=== PATIENT | female | born 1985 | race African-American/Black ===

== ENCOUNTER 2020-11-21 10:57 | Outpatient (CLI) | payer OTHER, SELFPAY ==
[2020-11-21 11:28] LABS: Basophils Percent Auto 0.3 % (0.2-1.2); Eosinophils Absolute Auto 0.1 K/mm3 (0-0.3); Eosinophils Percent Auto 0.7 % (0-4.4); Hematocrit 38.5 % (37.0-47.0); Hemoglobin 12.9 g/dL (12.0-15.0); Immature Granulocyte Absolute 0.03 K/mm3 (0.00-0.031); Immature Granulocyte Percent A 0.4 % (0-0.5); Lymphocytes Absolute Auto 3.65 K/mm3 (0.9-3.2); Lymphocytes Percent Auto 47.9 % (18.3-44.2); Mean Corpuscular HGB Conc 33.5 g/dl (32-36); Mean Corpuscular Hemoglobin 27.8 pg (26-34); Mean Platelet Volume 9.1 fl (7.4-10.4); Monocytes Absolute Auto 0.5 K/mm3 (0.1-0.6); Monocytes Percent Auto 6.3 % (2.6-8.5); Neutrophils Absolute Auto 3.4 K/mm3 (1.3-6.7); Neutrophils Percent Auto 44.4 % (45.5-73.1); Platelet Count Result 262 k/mm3 (150-375); Red Blood Count 4.64 M/mm3 (4.2-5.4); Red Cell Distribution Width 12.2 % (11.5-14.5); White Blood Count 7.6 K/mm3 (4.5-10.0)
[2020-11-21 11:43] LABS: Alanine Aminotransferase 23 U/L (4-35); Albumin Level 4.1 g/dL (3.5-5.1); Alkaline Phosphatase 56 U/L (38-126); Anion Gap 5 mmol/L (8-16); Aspartate Amino Transferase 31 U/L (14-36); Bilirubin,Total 0.4 mg/dL (0.2-1.3); Blood Urea Nitrogen 14 mg/dL (7-17); Carbon Dioxide 29 mmol/L (22-30); Chloride 104 mmol/L (98-107); Cholesterol 161 mg/dL (0-200); Estimated Glomerular Filt Rate > 60; Glucose 141 mg/dL (65-110); HDL Direct 64 mg/dL; Magnesium 1.8 mg/dL (1.6-2.3); Potassium 4.3 mmol/L (3.4-5.0); Sodium 138 mmol/L (137-145); Triglycerides 68 mg/dL (<150)
[2020-11-21 11:53] LABS: LDL Cholesterol Direct 65 mg/dL
[2020-11-21 12:28] LABS: Vitamin D 25 Hydroxy 36.9 ng/mL
[2020-11-21 12:34] LABS: Hemoglobin A1C 6.2 % (<5.7)
[2020-11-21 12:42] LABS: Vitamin B12 > 1000.0 pg/mL (239-931)
== END 2020-11-21 10:58 | disposition home or self-care (01) ==
LOC: ANHLAB 11:01
PROVIDERS: PCP Nurse Practitioner Family
DX: K91.2 Postsurgical malabsorption, not elsewhere classified (principal); Z98.84 Bariatric surgery status
CPT/HCPCS: 36415; 80053; 80061; 82306; 82607; 82746; 83036; 83735; 84425; 85025

== ENCOUNTER 2021-05-18 10:46 | Emergency (ER) | payer OTHER, SELFPAY ==
--- NOTE | ~2021-05-18 | US_ITS ---
EXAMINATION: US venous doppler [facility] DATE: 05/18/2021 12:37 INDICATION: Left lower limb pain and swelling. TECHNIQUE: Grayscale ultrasound images without and with compression and Doppler ultrasound images of the left lower extremity veins were obtained. COMPARISON: None. FINDINGS: The visualized portions of left common femoral vein, profunda (deep) femoral vein, femoral vein, popl iteal vein, peroneal veins, posterior tibial veins, and greater saphenous vein outflow are patent. IMPRESSION: 1. No deep venous thrombosis. Reviewed, dictated and finalized at location A.
--- NOTE | ~2021-05-18 | CT_ITS ---
EXAMINATION: CT lumbar spine wo [facility] EXAM DATE: 05/18/2021 12:39 INDICATION: Midline tenderness, spasms, back pain. TECHNIQUE: Spiral CT lumbar spine was performed without contrast. Axial, coronal and sagittal images of the lumbar spine were reviewed. The dose-length product (DLP) for this examination was 1141.64 mGy -cm. The exposure was tailored according to patient size (auto mA exposure control), and iterative r econstruction (ASIR) was used as additional dose reduction technique. There is no prior study for co mparison. FINDINGS: Sacroiliac joints unremarkable. There is no evidence of acute lumbar fracture. There is no disc spa ce widening or traumatic vertebral body subluxation suspected. Paraspinal soft tissue is unremarkabl e. There is mild to moderate disc disease at L5-S1. The vertebral body and disc heights are otherwis e well maintained. 2 mm retrolisthesis L5 on S1. No spondylolysis. There is mild lower lumbar facet a rthropathy. IMPRESSION: 1. Mild to moderate L5-S1 disc disease. 2. Mild lower lumbar facet arthropathy. Reviewed, dictated and finalized at location A.
[2021-05-18 10:47] VITALS: BP 158/100; PULSE 94; RESP 20; TEMP 36.9; O2SAT 100
--- NOTE | 2021-05-18 11:46 | ED.BACK ---
HPI - Back Pain/Injury General Chief Complaint: Back Pain/Injury Stated Complaint: back pain , calf pain Time Seen by Provider: 05/18/21 10:57 Source: patient Mode of arrival: ambulatory Limitations: no limitations History of Present Illness HPI Narrative: Patient is a 35-year-old female who presents the ED with report of lower back pain and left lower extremity pain. Patient reports the pain has been ongoing for the past 3 weeks. No injury, fall, recent heavy lifting, or strenuous activity. She states the pain is worse in her left and right lower back and she also reports having pain in her left calf. She states the pain in her left calf seems to radiate up her mid left thigh. She does not think this pain radiates from her lower back however. Patient is able to ambulate but has pain with this. She has been taking Tylenol at home for the pain and using heat without much relief. No numbness tingling, saddle anesthesia, weakness in legs, incontinence of bowel or bladder, urinary retention, chest pain, shortness of breath, fever, chills, N/V, abdominal pain. Related Data Allergies Allergy/AdvReac Type Severity Reaction Status Date / Time No Known Allergies Allergy Unverified 08/06/18 16:51 Review of Systems Review of Systems: CONSTITUTIONAL: Denies fever, chills. CARDIOVASCULAR: Denies chest pain. RESPIRATORY: Denies dyspnea. GASTROINTESTINAL: Denies abdominal pain, nausea, vomiting, diarrhea, incontinence. GENITOURINARY: Denies dysuria, incontinence, or hematuria. MUSCULOSKELETAL: Reports bilateral lower back pain, L calf pain up to L thigh. NEUROLOGIC: Denies headache, numbness/tingling, or weakness. All systems reviewed & are unremarkable except as noted in HPI and below PMFSH Past Medical History Medical History (Updated 05/18/21 @ 14:08 by Praveena Pepper PA-C) Hypertension Surgical History Surgical History (Updated 05/18/21 @ 11:47 by Praveena Pepper PA-C) H/O gastric sleeve Social History Social History (Updated 05/18/21 @ 11:47 by Praveena Pepper PA-C) Smoking status: Never smoker Exam Narrative: GENERAL: Well appearing, obese, non-toxic, in no acute distress. HEAD: Normocephalic, atraumatic. EYES: PERRL/EOMI, conjunctivae clear bilaterally. NECK: Supple. No adenopathy, no masses. No midline spinal tenderness. RESPIRATORY: Airway patent, respirations nonlabored. Clear to auscultation bilaterally, no rales, rhonchi, wheezing. CARDIOVASCULAR: Regular rate and rhythm without murmurs, rubs, or gallops. Peripheral pulses 2+ and equal bilaterally. ABDOMINAL: Soft, nontender, nondistended, no hepatosplenomegaly. Normoactive BS. MUSCULOSKELETAL: Moves all extremities. Strength/ROM intact without gross deformities. Pain with extension of L knee. Tender to palpation of L popliteal fossa. Mild swelling to L calf compared to R. No pitting edema. Tenderness to palpation of R and L lumbar paraspinal muscles. No midline spinal tenderness. SKIN: Warm, dry, normal color. No rashes. NEURO: A&O X3. Speech clear. Cranial nerves II-XII intact. Steady gait. No ataxic movements. PSYCHIATRIC: Appropriate mood and affect. Normal interaction. Course Vital Signs Vital signs: Vital Signs Temperature 98.4 F 05/18/21 10:47 Pulse Rate 94 05/18/21 10:47 Respiratory Rate 20 05/18/21 10:47 Blood Pressure 158/100 H 05/18/21 10:47 Pulse Oximetry 100 05/18/21 10:47 Temperature 98.4 F 05/18/21 10:47 Pulse Rate 94 05/18/21 10:47 Respiratory Rate 20 05/18/21 10:47 Blood Pressure 158/100 H 05/18/21 10:47 Pulse Oximetry 100 05/18/21 10:47 MDM - Back Pain/Injury MDM Narrative Medical decision making narrative: Patient presenting to ED with several week history of intermittent low back pain and left calf pain. Patient's pain is positional and localized to paraspinal muscles without signs of cord compression or cauda equina. Normal neurologic exams. No fever noted and no significant risk factors for osteomy
[2021-05-18] MEDS: KETOROLAC (*BKC) 60 MG/2 ML VIAL IM (11:53)
[2021-05-18 14:26] VITALS: BP 134/84; PULSE 80; RESP 18; TEMP 36.3; O2SAT 98
--- NOTE | 2021-05-19 16:42 | PC.NURSE ---
pt. called stating pharmacy ([facility]) told her Praveena was not a covered provider for her prescriptions. Pt. has helioidian. Pt. instructed to have pharmacy call us directly.
== END 2021-05-18 14:28 | disposition home or self-care (01) ==
PROVIDERS: Emergency Provider Emergency Medicine; PCP Family Medicine
DX: S39.012A Strain of muscle, fascia and tendon of lower back, initial encounter (principal); S86.912A Strain of unspecified muscle(s) and tendon(s) at lower leg level, left leg, initial encounter; I10 Essential (primary) hypertension; Z98.84 Bariatric surgery status; M51.9 Unspecified thoracic, thoracolumbar and lumbosacral intervertebral disc disorder; X58.XXXA Exposure to other specified factors, initial encounter
CPT/HCPCS: 72131; 81025; 93971; 96372; 99284; J1885

== ENCOUNTER 2021-06-27 16:31 | Outpatient (CLI) | payer OTHER, SELFPAY ==
[2021-06-27 17:11] LABS: Alanine Aminotransferase 18 U/L (6-35); Albumin Level 3.8 g/dL (3.5-5.1); Alkaline Phosphatase 77 U/L (38-126); Anion Gap 5 mmol/L (8-16); Aspartate Amino Transferase 22 U/L (14-36); Bilirubin,Total 0.2 mg/dL (0.2-1.3); Blood Urea Nitrogen 15 mg/dL (7-17); Calcium 8.4 mg/dL (8.4-10.2); Carbon Dioxide 26 mmol/L (22-30); Chloride 103 mmol/L (98-107); Cholesterol 170 mg/dL (0-200); Estimated Glomerular Filt Rate > 60; Glucose 251 mg/dL (65-110); HDL Direct 61 mg/dL; Potassium 4.2 mmol/L (3.4-5.0); Sodium 134 mmol/L (137-145); Triglycerides 96 mg/dL (<150)
[2021-06-27 17:15] LABS: Basophils Percent Auto 0.2 % (0.2-1.2); Eosinophils Absolute Auto 0.1 K/mm3 (0-0.3); Hematocrit 37.4 % (37.0-47.0); Hemoglobin 11.9 g/dL (12.0-15.0); Immature Granulocyte Absolute 0.03 K/mm3 (0.00-0.031); Immature Granulocyte Percent A 0.3 % (0-0.5); Lymphocytes Absolute Auto 2.74 K/mm3 (0.9-3.2); Lymphocytes Percent Auto 31.4 % (18.3-44.2); Mean Corpuscular HGB Conc 31.8 g/dl (32-36); Mean Corpuscular Hemoglobin 27.7 pg (26-34); Mean Corpuscular Volume 87.2 fl (80-100); Mean Platelet Volume 9.3 fl (7.4-10.4); Monocytes Absolute Auto 0.7 K/mm3 (0.1-0.6); Monocytes Percent Auto 8.1 % (2.6-8.5); Neutrophils Absolute Auto 5.1 K/mm3 (1.3-6.7); Platelet Count Result 252 k/mm3 (150-375); Red Blood Count 4.29 M/mm3 (4.2-5.4); Red Cell Distribution Width 12.8 % (11.5-14.5); White Blood Count 8.7 K/mm3 (4.5-10.0)
[2021-06-27 17:17] LABS: Hemoglobin A1C 7.2 % (<5.7)
[2021-06-27 17:22] LABS: LDL Cholesterol Direct 65 mg/dL
[2021-06-27 17:36] LABS: Vitamin D 25 Hydroxy 34.5 ng/mL
== END 2021-06-27 16:32 | disposition home or self-care (01) ==
LOC: ANHLAB 16:34
PROVIDERS: PCP Family Medicine; Visit Provider Family Medicine
DX: E11.65 Type 2 diabetes mellitus with hyperglycemia (principal); E55.9 Vitamin D deficiency, unspecified; I10 Essential (primary) hypertension
CPT/HCPCS: 36415; 80053; 80061; 82306; 83036; 84443; 85025

== ENCOUNTER 2022-01-14 02:35 | Inpatient (IN) | payer OTHER, SELFPAY ==
[2022-01-14] VITALS (53 sets, daily range): BP systolic 137–241; BP diastolic 70–211; PULSE 83–104; RESP 13–27; TEMP 35.9–36.4; O2SAT 96–100; BMI 46.7
--- NOTE | 2022-01-14 | ECHO_ITS ---
Patient Info Name: Kathryn Flores Age: 36 years : 1985 Gender: Female Ht: 64 in Wt: 270 lbs BSA: 2.42 m2 HR: 97 bpm BP: 207 / 85 mmHg Technical Quality: Good Exam Date: 01/14/2022 3:07 PM Exam Location: [facility] Pulmonary Exam Room: 260 Patient Status: Inpatient Admit Date: 01/14/2022 Staff Ordering Physician: Ella Jiang MD Natural Resource Economist: Benita Akhtar RCS Attending Provider: Shekhar Zavala MD Exam Type: CA echo doppler color flow Study Info Indications - cva headach rt arm numbness htn Complete two-dimensional, color flow and Doppler transthoracic echocardiogram is performed. Summary 1. Complete two-dimensional, color flow and Doppler transthoracic echocardiogram is performed. 2. Left ventricular chamber dimension is normal. 3. Left ventricular systolic function is normal, estimated at 65-70%. 4. There is moderately increased left ventricular wall thickness. 5. The left ventricular diastolic function is grade I diastolic dysfunction. 6. E/e' 8 is minimally elevated. 7. There is trace tricuspid valve regurgitation. 8. Moderate pulmonary hypertension, estimated pulmonary arterial systolic pressure is 51 mmHg. 9. There is trivial pericardial effusion. Left Ventricle E/e' 8 is minimally elevated. Left ventricular chamber dimension is normal. Left ventricular systolic function is normal, estimated at 65-70%. There is moderately increased left ventricular wall thickness. The left ventricular diastolic function is grade I diastolic dysfunction. Right Ventricle Right ventricular chamber dimension is normal. Right ventricular systolic function is normal. Left Atria Left atrial chamber dimension is normal. Right Atria Right atrial chamber dimension is normal. Aortic Valve The aortic valve is trileaflet. There is no aortic valve stenosis. There is no aortic valve regurgitation. Pulmonic Valve There is no pulmonic regurgitation. Mitral Valve There is no mitral valve stenosis. There is no mitral valve regurgitation. Tricuspid Valve There is trace tricuspid valve regurgitation. Moderate pulmonary hypertension, estimated pulmonary arterial systolic pressure is 51 mmHg. Pericardium/Pleural There is trivial pericardial effusion. Inferior Vena Cava Normal inferior vena cava with >50% collapse upon inspiration consistent with normal right atrial pressure, 5 mmHg. Aorta The aortic root size at the sinus of Valsalva is normal. Left Ventricular Outflow Tract Name Value Normal LVOT 2D LVOT Diameter 2.0 cm LVOT Doppler LVOT Peak Gradient 4 mmHg LVOT Mean Gradient 3 mmHg LVOT VTI 19 cm LVOT VTI/AV VTI Ratio 0.8 LVOT Stroke Volume 61 ml LVOT CO 15.6 l/min LVOT CI 6.5 l/min/m2 Pulmonic Valve Name Value Normal
--- NOTE | ~2022-01-14 | MR_ITS ---
EXAMINATION: MR brain/brain stem wo/w con DATE: 01/14/2022 12:29 INDICATION: Stroke TECHNIQUE: Magnetic resonance imaging (MRI) of the brain and brainstem was performed without and with 20 mL Multihance intravenous contrast. Sequences included sagittal and axial T1-weighted SE, axial d iffusion-weighted FS SE, axial 3D SWAN, axial T2-weighted FLAIR, and axial T2-weighted FSE. Postcontr ast axial and coronal T1-weighted SE was obtained. Apparent diffusion coefficient (ADC) maps were cre ated. COMPARISON: None. FINDINGS: Small to moderate-sized region of restricted diffusion and associated cytotoxic edema in the left fro ntal lobe with multiple additional small foci of restricted diffusion with associated T2 hyperintense edema also consistent with smaller acute infarcts in the left frontal, left parietal and left occipi ira lobes. There is associated increased T2 signal No intracranial hemorrhage or abnormal intracrania l mass lesion. There are no intraparenchymal signal abnormalities seen on the other pulse sequences. The ventricles are symmetric and normal in size. There are no abnormal extra-axial fluid collections. Flow voids are seen in the cerebral arteries on the T2-weighted sequences consistent with their expe cted patency. Mild mucoperiosteal thickening the bilateral ethmoid sinuses. Visualized orbits and sof t tissues are unremarkable. Minimal enhancement consistent with luxury perfusion associated with the largest left frontal lobe infarct. There are no other areas of abnormal enhancement on the post contr ast images. IMPRESSION: 1. 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 The distribut ion involving unilateral both anterior and posterior circulation suggests either shower of emboli inc luding through a patent left posterior commuting artery versus unilateral watershed infarcts resultin g hypotension in the setting of left-sided flow limiting stenoses. Reviewed, dictated and finalized at location A. N PLANNER IMPRESSION: 1. Multiple acute infarcts in the left frontal, left parietal and left occipita l lobes. The distribution involving unilateral both anterior and posterior circ ulation suggests either shower of emboli including through a patent left track superintendent ior commuting artery versus unilateral watershed infarcts resulting hypotension in the setting of left-sided flow limiting stenoses.
--- NOTE | ~2022-01-14 | XR_ITS ---
EXAMINATION: XR chest 1V portable 01/14/2022 03:18 INDICATION: Weakness. Dyspnea. PROCEDURE: AP portable chest COMPARISON: 05/28/2017 FINDINGS: The lungs are clear. The cardiomediastinal silhouette is within normal limits. There are no pleural effusions. There is no pneumothorax suspected. IMPRESSION: 1: NO ACUTE CARDIOPULMONARY DISEASE. Reviewed, dictated and finalized at location A. BLACK
--- NOTE | ~2022-01-14 | US_ITS ---
EXAMINATION: US carotid duplex BI DATE: 01/14/2022 18:35 INDICATION: Stroke TECHNIQUE: Grayscale, color Doppler, and pulsed Doppler images of the cervical carotid arteries were obtained. The degree of vessel stenosis is placed in one of the following categories: normal, <50%, 5 0-69%, >=70% but less than near-occlusion, near-occlusion, or total occlusion. Note that percent sten osis relative to normal distal artery lumen diameter is indirectly measured from velocity measurement s as described by Adalid, et al. Radiology 2003; 229:340-346. COMPARISON: Carotid CT angiogram dated 01/14/2022 FINDINGS: RIGHT: The right common carotid artery (CCA) peak systolic velocity (PSV) is 107 cm/s. The right internal ca rotid artery (ICA) PSV is 192 cm/s. The right ICA end-diastolic velocity (EDV) is 69 cm/s. The right ICA/CCA PSV ratio is 1.8. There is minimal if any atherosclerotic plaque evident in the right common carotid artery, carotid bulb or more distal small caliber internal carotid artery as on the current u ltrasound or the earlier carotid CT angiogram. The external carotid artery (ECA) PSV is 157 cm/s. The re is antegrade flow in the right vertebral artery. LEFT: The left CCA PSV is 111 cm/s. The left ICA PSV is 104 cm/s. The left ICA EDV is 35 cm/s. The left ICA /CCA PSV ratio is 0.9. There is minimal if any atherosclerotic plaque evident in the left common gant tid artery, carotid bulb or more distal small caliber internal carotid artery on the current ultrasou nd or the earlier carotid CT angiogram. The ECA PSV is cm/s. There is antegrade flow in the left vert ebral artery. IMPRESSION: 1. Minimal if any atherosclerotic plaque evident on grayscale ultrasound images or earlier carotid CT angiogram but with significantly elevated velocities in the right internal carotid artery. This is l ikely related to the diffusely small caliber of the bilateral internal carotid arteries as seen and d iscussed on the separate CT angiogram report which raises suspicion for moyamoya disease. Reviewed, dictated and finalized at location A. DING MAINTENANCE SUPERVISOR IMPRESSION: 1. Minimal if any atherosclerotic plaque evident on grayscale ultrasound images or earlier carotid CT angiogram but with significantly elevated velocities in the right internal carotid artery. This is likely related to the diffusely smal l caliber of the bilateral internal carotid arteries as seen and discussed on t he separate CT angiogram report which raises suspicion for moyamoya disease.
--- NOTE | ~2022-01-14 | CT_ITS ---
EXAMINATION: CTA BRAIN/CAROTID DATE: 01/14/2022 14:26 INDICATION: Acute stroke TECHNIQUE: Computed tomographic angiography (CTA) of the head and neck was performed with 100 mL Omni paque-350 intravenous contrast. Multiplanar reconstructions and maximum intensity projection 3D-recon structions of the carotid arteries and of the intracranial arteries were created by the technologist on a separate workstation. Automated exposure control and iterative reconstruction technique were emp loyed.The dose-length product was 1085.09 mGy-cm. COMPARISON: Head CT and brain MR dated 01/14/2022 FINDINGS: Carotid arteries: There is no evident atherosclerotic plaque with 0% stenosis of the right and left carotid bulbs relat irina to normal distal artery lumen diameter (NASCET criteria). The cervical portion of the bilateral i nternal carotid arteries appear diffusely relatively small in caliber, each measuring approximately 3 mm in diameter. The vertebral arteries appear codominant, each also approximately 3 mm diameter with no evident minimally significant stenosis. The proximal most portion of the right vertebral artery i ncluding its origin is obscured by streak artifact from dense contrast in the right brachiocephalic v ein and a few adjacent smaller veins. Visualized portion of the aortic arch and superior mediastinum are unremarkable. Visualized apices of lungs are clear. Cervical soft tissues and bones are unremarka ble. Intracranial arteries The bilateral intracranial internal carotid arteries each gradually taper at the bilateral carotid si phons measuring 1.6 mm diameter on the right and 1.2 mm in diameter and the left at the supraclinoid portion of the arteries but without evident discrete site of stenosis. Both of the internal carotid a rteries fill respective carotid canals suggesting this is developmental. In comparison the basilar ar allen measures approximately 2.7 mm in diameter, also without a discrete hemodynamically significant s tenosis in the vertebral and basilar arteries. The intracranial vertebral arteries remain codominant. There are no aneurysms identified. Both A1 and P1 segments are patent along with a patent anterior communicating artery. Cerebral arterial arborization appears symmetric. Small region of decreased a ttenuation in the left frontal lobe corresponding to an acute infarct is identified on prior MRI. The additional smaller infarcts identified in the left parietal and occipital lobes are too small to be visualized on CT. No abnormally enhancing brain lesions identified. IMPRESSION: 1. 0% stenosis of the right and left carotid bulbs relative to normal distal artery lumen diameter (N ASCET criteria). 2. The bilateral internal carotid arteries appear diffusely small in caliber with further gradual tap ering at the bilateral carotid siphons demonstrate diameter of approximately 1.6 mm on the right and 1.2 mm on the left but without evident focal stenoses. This suggests possibility of moyamoya disease. Reviewed, dictated and finalized at location A. [facility] IMPRESSION: 1. 0% stenosis of the right and left carotid bulbs relative to normal distal ar allen lumen diameter (NASCET criteria). 2. The bilateral internal carotid arteries appear diffusely small in caliber wi th further gradual tapering at the bilateral carotid siphons demonstrate diamet er of approximately 1.6 mm on the right and 1.2 mm on the left but without evid ent focal stenoses. This suggests possibility of moyamoya disease.
--- NOTE | ~2022-01-14 | CT_ITS ---
EXAMINATION: CT brain wo con DATE: 01/14/2022 03:22 INDICATION: Headache TECHNIQUE: Computed tomography (CT) of the head was performed without intravenous contrast. The dose- length product was 605.33 mGy-cm. Automated exposure control and iterative reconstruction technique w ere employed. COMPARISON: None FINDINGS: There is focal hypoattenuation left frontal lobe, most likely acute infarction. Mass less f avored. No ventriculomegaly or midline shift. Basilar cisterns are patent. Paranasal sinuses and mast oids are pneumatized. No depressed skull fractures. No acute intracranial hemorrhage. IMPRESSION: 1. Focal hypoattenuation left frontal lobe, suspicious for acute infarction. Mass less favored. Recom mend correlation with MRI. No significant mass effect or intracranial hemorrhage. Reviewed, dictated and finalized at location A. NICAL MAINTENANCE SPECIALIST IMPRESSION: 1. Focal hypoattenuation left frontal lobe, suspicious for acute infarction. Ma ss less favored. Recommend correlation with MRI. No significant mass effect or intracranial hemorrhage.
--- NOTE | 2022-01-14 02:50 | ECG_ITS ---
Measurements Intervals [place] Rate: 90 P: 8 ID: [id number] QRS: 4 QRSD: 99 T: 40 QT: 326 QTc: 399 Interpretive Statements SINUS RHYTHM BASELINE ARTIFACT PRESENT NO PREVIOUS ECG AVAILABLE FOR COMPARISON Electronically Signed On 01-14-2022 11:23:14 SUPERVISOR LAUNDRY by Karie Tejada M.D.
--- NOTE | 2022-01-14 02:57 | ED.GENADULT ---
HPI - General Adult General Chief complaint: Unspecified Stated complaint: Confusion, right hand numbness Time Seen by Provider: 01/14/22 02:45 History of Present Illness HPI narrative: Patient a 36-year-old female who presents the emergency department with chief complaint of headache and right arm numbness. Patient reports that symptoms have been ongoing since last patient reports that she has history of hypertension and has not been taking her lisinopril for some time. Patient reports that she has been having headache in the left frontal area Related Data Allergies Allergy/AdvReac Type Severity Reaction Status Date / Time No Known Allergies Allergy Verified 01/14/22 02:41 [facility] Past Medical History Medical History (Updated 01/14/22 @ 05:25 by Ahmet House MD) Hypertension Surgical History Surgical History (Updated 05/18/21 @ 11:47 by Praveena Mendez PA-C) H/O gastric sleeve Social History Social History (Updated 05/18/21 @ 11:47 by Praveena Mendez PA-C) Smoking status: Never smoker Course Vital Signs Vital signs: Vital Signs Temperature 36.4 C 01/14/22 02:40 Pulse Rate 99 01/14/22 02:40 Respiratory Rate 19 01/14/22 02:40 Blood Pressure 209/106 H 01/14/22 02:40 Pulse Oximetry 100 01/14/22 02:40 Temperature 36.4 C 01/14/22 02:40 Pulse Rate 89 01/14/22 05:09 Respiratory Rate 18 01/14/22 05:09 Blood Pressure 187/90 H 01/14/22 05:09 Pulse Oximetry 100 01/14/22 05:09 Medical Decision Making Vital Signs Vital Signs: Vital Signs Temperature 36.4 C 01/14/22 02:40 Pulse Rate 99 01/14/22 02:40 Respiratory Rate 19 01/14/22 02:40 Blood Pressure 209/106 H 01/14/22 02:40 Pulse Oximetry 100 01/14/22 02:40 Temperature 36.4 C 01/14/22 02:40 Pulse Rate 89 01/14/22 05:09 Respiratory Rate 18 01/14/22 05:09 Blood Pressure 187/90 H 01/14/22 05:09 Pulse Oximetry 100 01/14/22 05:09 Lab Data 01/14/22 03:04 01/14/22 03:04 Labs: Lab Results 01/14/22 01/14/22 01/14/22 Range/Units 03:04 03:04 03:04 WBC 9.8 (4.5-10.0) K/mm3 RBC 4.96 (4.2-5.4) M/mm3 Hgb 13.5 (12.0-15.0) g/dL Hct 41.0 (37.0-47.0) % MCV 82.7 (80-100) fl MCH 27.2 (26-34) pg MCHC 32.9 (32-36) g/dl RDW 13.0 (11.5-14.5) % Plt Count 241 (150-375) k/mm3 MPV 9.4 (7.4-10.4) fl Immature Gran % (Auto) 0.4 (0-0.5) % Neut % (Auto) 50.3 (45.5-73.1) % Lymph % (Auto) 41.7 (18.3-44.2) % [place] % (Auto) 6.9 (2.6-8.5) % Eos % (Auto) 0.5 (0-4.4) % Baso % (Auto) 0.2 (0.2-1.2) % Lymph # (Auto) 4.07 H (0.9-3.2) K/mm3 [place] # (Auto) 0.7 H (0.1-0.6) K/mm3 Eos # (Auto) 0.1 (0-0.3) K/mm3 Baso # (Auto) 0.0 (0.0-0.1) K/mm3 Abs Immat Gran (auto) 0.04 H (0.00-0.031) K/mm3 Absolute Neuts (auto) 4.9 (1.3-6.7) K/mm3 Absolute Nucleated RBC 0.0 (0.0-0.012) K/mm3 Nucleated RBC % 0.0 (0.0-0.2) % PT 12.8 (11.1-14.7) Seconds INR 1.0 APTT 25.3 (22.3-36.8) SECONDS Sodium 134 L (137-145) mmol/L Potassium 4.7 (3.4-5.0) mmol/L Chloride 102 (98-107) mmol/L Carbon Dioxide 25 (22-30) mmol/L Anion Gap 7 L (8-16) mmol/L BUN 13 (7-17) mg/dL Creatinine 0.50 L (0.7-1.0) mg/dL Estim Creat Clear Calc 171 ml/min Estimated GFR > 60 (59 - ) Glucose 305 H (65-110) mg/dL Lactic Acid (0.7-2.0) mmol/L Calcium 9.0 (8.4-10.2) mg/dL Magnesium 1.8 (1.6-2.3) mg/dL Total Bilirubin 0.4 (0.2-1.3) mg/dL AST 26 (14-36) U/L ALT 21 (6-35) U/L Alkaline Phosphatase 72 (38-126) U/L Troponin I < 0.012 (0.000-0.034) ng/mL Total Protein 8.0 (6.3-8.2) g/dL Albumin 4.0 (3.5-5.1) g/dL Urine Color (Yellow) Urine Appearance (Clear) Urine pH (5.0-9.0) Ur Specific [place] (1.001-1.035) Urine Protein (Negative) mg/dL Urine Gluco
[2022-01-14] MEDS: LABETALOL HCL INJ 100 MG/20 ML VIAL 20 MG IV PUSH (03:06)
[2022-01-14 03:10] LABS: Basophils Percent Auto 0.2 % (0.2-1.2); Eosinophils Absolute Auto 0.1 K/mm3 (0-0.3); Eosinophils Percent Auto 0.5 % (0-4.4); Hemoglobin 13.5 g/dL (12.0-15.0); Immature Granulocyte Absolute 0.04 K/mm3 (0.00-0.031); Immature Granulocyte Percent A 0.4 % (0-0.5); Lymphocytes Absolute Auto 4.07 K/mm3 (0.9-3.2); Lymphocytes Percent Auto 41.7 % (18.3-44.2); Mean Corpuscular HGB Conc 32.9 g/dl (32-36); Mean Corpuscular Hemoglobin 27.2 pg (26-34); Mean Corpuscular Volume 82.7 fl (80-100); Mean Platelet Volume 9.4 fl (7.4-10.4); Monocytes Absolute Auto 0.7 K/mm3 (0.1-0.6); Monocytes Percent Auto 6.9 % (2.6-8.5); Neutrophils Absolute Auto 4.9 K/mm3 (1.3-6.7); Neutrophils Percent Auto 50.3 % (45.5-73.1); Platelet Count Result 241 k/mm3 (150-375); Red Blood Count 4.96 M/mm3 (4.2-5.4); White Blood Count 9.8 K/mm3 (4.5-10.0)
[2022-01-14 03:20] LABS: Prothrombin Time 12.8 Seconds (11.1-14.7)
[2022-01-14 03:21] LABS: Partial Thromboplastin Time 25.3 SECONDS (22.3-36.8)
[2022-01-14 03:22] LABS: Alanine Aminotransferase 21 U/L (6-35); Alkaline Phosphatase 72 U/L (38-126); Anion Gap 7 mmol/L (8-16); Aspartate Amino Transferase 26 U/L (14-36); Bilirubin,Total 0.4 mg/dL (0.2-1.3); Blood Urea Nitrogen 13 mg/dL (7-17); Carbon Dioxide 25 mmol/L (22-30); Chloride 102 mmol/L (98-107); Estimated CRCL calculation 171 ml/min; Estimated Glomerular Filt Rate > 60; Glucose 305 mg/dL (65-110); Magnesium 1.8 mg/dL (1.6-2.3); Potassium 4.7 mmol/L (3.4-5.0); Sodium 134 mmol/L (137-145)
[2022-01-14 03:31] LABS: Troponin I < 0.012 ng/mL (0.000-0.034)
[2022-01-14 04:04] LABS: Influenza A QL RT-PCR Negative (Negative); Influenza B QL RT-PCR Negative (Negative); SARS-CoV-2 RNA PCR Negative
[2022-01-14 04:11] LABS: Appearance Urine Clear (Clear); Bilirubin Urine Negative (Negative); Blood Urine Negative (Negative); Color Urine Yellow (Yellow); Glucose Urine UA 3+ mg/dL (Negative); Ketones Urine Negative (Negative); Leukocyte Esterase Ur Negative LEU/UL (Negative); Nitrate Urine Negative (Negative); Protein Urine 2+ mg/dL (Negative); Urobilinogen Urine 0.2 mg/dL (<2.0)
[2022-01-14 04:16] LABS: RBC Urine 0-2 /hpf (0-2); Squamous Epithelial Cell Urine Occasional /hpf (Few); WBC Urine 0-3 /hpf
[2022-01-14 04:39] LABS: Add Urine Microscopic? YES
[2022-01-14 06:11] LABS: Troponin I < 0.012 ng/mL (0.000-0.034)
[2022-01-14 08:32] LABS: Glucose Point of Care 225 mg/dl (65-105)
[2022-01-14] MEDS: hydrALAZINE HCL 20 MG/ML VIAL 10 MG IV PUSH (08:40)
[2022-01-14 09:23] LABS: Troponin I < 0.012 ng/mL (0.000-0.034)
[2022-01-14 13:19] LABS: Glucose Point of Care 286 mg/dl (65-105)
--- NOTE | 2022-01-14 13:51 | PC.NURSE ---
This patient, Kathryn Flores, was admitted to 2 Medical Room 260-. Patient/family oriented to hospital policies and general routines including ID bracelet, bed and alarms, visiting hours, pain management, procedures, bathroom and other care routines, personal items, smoking policy, room service/diet, and visiting hours. Information on how to activate the Rapid Response Team has been discussed. Patient/Family are encouraged to report perceived risks to care and to ask questions if they do not understand what they are told or what they should do.
--- NOTE | 2022-01-14 16:41 | PM.IMHP ---
H&P: HPI History of Present Illness Date/Time: 01/14/22 16:41 Chief Complaint: headache Narrative: ED-HPI narrative: Patient a 36-year-old female who presents the emergency department with chief complaint of headache and right arm numbness.? Patient reports that symptoms have been ongoing since last patient reports that she has history of hypertension and has not been taking her lisinopril for some time.? Patient reports that she has been having headache in the left frontal area patient is a 40-year-old female with history of hypertension at 1 time she was taking lisinopril but has not taken it for several months, patient denies any family history of coronary artery disease or stroke, presented emergency department with complaint of left frontal headache, patient denies any other complaint blurry vision, any numbness weakness in upper or lower extremity, currently patient states her headache is resolved. to further evaluate patient had a CT scan of the head which showed: 1. Focal hypoattenuation left frontal lobe, suspicious for acute infarction. Mass less favored. Recommend correlation with MRI. No significant mass effect or intracranial hemorrhage. MRI of the brain showed similarly 1. 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 The distribution involving unilateral both anterior and posterior circulation suggests either shower of emboli including through a patent left posterior commuting artery versus unilateral watershed infarcts resulting hypotension in the setting of left-sided flow limiting stenoses. communicated with Neurology further workup with CTA of the head and neck echo is ordered, will start the patient on aspirin will do the lipid profile, also pawn arrival patient had a significant elevated blood pressure, will continue permissive hypertension monitoring and keep the systolic blood pressure below 180 with hydralazine, once clinically stable will have PT OT evaluate the patient and further recommendation to follow. patient is admitted as observation status Review of Systems Review of Systems: 12-point ROS obtained. Negative, unless stated in HPI. [facility] Past Medical History Medical History Hypertension Surgical History Surgical History H/O gastric sleeve Social History Social History Smoking status: Never smoker Alcohol intake: current Drinks per week: 1 Substance use: never Lack of Transportation: No Lack of Food: Never True Current Housing: I Have Housing Concerned About Future Housing: No Difficulty Paying Gas/Electric Bills: No Difficulty Paying for Meds: No Currently Unemployed: No Education: Trade/Vocational Certificate Difficulty w/ Childcare or Family Care: No Spiritual care concerns: No Meds Home Medications and Allergies Home Medications Medication Instructions Recorded Confirmed Type cyclobenzaprine 5 mg tablet 5 mg PO TID PRN muscle spasm #12 05/18/21 01/14/22 Rx tabs ergocalciferol (vitamin D2) 1,250 1,250 mcg PO WEEKLY 01/14/22 01/14/22 History mcg (50,000 unit) capsule glyburide 5 mg tablet 5 mg PO DAILY 01/14/22 01/14/22 History metformin 1,000 mg tablet 1,000 mg PO DAILY 01/14/22 01/14/22 History Allergies Allergy/AdvReac Type Severity Reaction Status Date / Time No Known Allergies Allergy Verified 01/14/22 02:41 Vital Signs Vital Signs - 24 hr 01/14/22 02:40 01/14/22 03:10 01/14/22 02:44 Temperature 97.6 F Pulse Rate 99 88 91 Respiratory Rate 19 20 19 Blood Pressure 209/106 H 191/85 H 229/131 H Pulse Oximetry 100 99 100 Oxygen Delivery 01/14/22 02:45 01/14/22 02:46 01/14/22 03:18 Temperature Pulse Rate 89 97 Respiratory Rate 17 18 Blood Pressure 241/211 H 175/84 H Pulse Oxime
[2022-01-14 17:23] LABS: Glucose Point of Care 218 mg/dl (65-105)
[2022-01-14] MEDS: INSULIN ASPART (*BKC) 100 UNITS/ML SUB-Q (17:51)
[2022-01-14 22:21] LABS: Glucose Point of Care 281 mg/dl (65-105)
[2022-01-15] VITALS (10 sets, daily range): BP systolic 148–201; BP diastolic 81–97; PULSE 84–92; RESP 18–20; TEMP 35.8–36.2; O2SAT 97–99
[2022-01-15 05:59] LABS: Hematocrit 40.9 % (37.0-47.0); Hemoglobin 13.4 g/dL (12.0-15.0); Mean Corpuscular HGB Conc 32.8 g/dl (32-36); Mean Corpuscular Hemoglobin 27.2 pg (26-34); Mean Corpuscular Volume 83.1 fl (80-100); Mean Platelet Volume 9.9 fl (7.4-10.4); Platelet Count Result 248 k/mm3 (150-375); Red Blood Count 4.92 M/mm3 (4.2-5.4); Red Cell Distribution Width 13.2 % (11.5-14.5); White Blood Count 9.3 K/mm3 (4.5-10.0)
[2022-01-15 06:11] LABS: Alanine Aminotransferase 19 U/L (6-35); Albumin Level 3.8 g/dL (3.5-5.1); Alkaline Phosphatase 62 U/L (38-126); Anion Gap 6 mmol/L (8-16); Aspartate Amino Transferase 22 U/L (14-36); Bilirubin,Total 0.5 mg/dL (0.2-1.3); Blood Urea Nitrogen 11 mg/dL (7-17); Carbon Dioxide 28 mmol/L (22-30); Chloride 102 mmol/L (98-107); Cholesterol 178 mg/dL (0-200); Estimated CRCL calculation 146 ml/min; Estimated Glomerular Filt Rate > 60; Glucose 268 mg/dL (65-110); HDL Direct 47 mg/dL; Magnesium 1.9 mg/dL (1.6-2.3); Potassium 4.4 mmol/L (3.4-5.0); Sodium 136 mmol/L (137-145); Triglycerides 127 mg/dL (<150)
[2022-01-15 06:22] LABS: LDL Cholesterol Direct 80 mg/dL
[2022-01-15 08:22] LABS: Glucose Point of Care 243 mg/dl (65-105)
[2022-01-15] MEDS: INSULIN ASPART (*BKC) 100 UNITS/ML SUB-Q ×3 (09:12→17:39)
--- NOTE | 2022-01-15 09:41 | WPDNEURCNPN ---
Assessment and Plan Assessment and plan (1) Acute stroke due to ischemia: Code(s): I63.9 - Cerebral infarction, unspecified Status: Acute (2) Cerebral vascular disease: Code(s): I67.9 - Cerebrovascular disease, unspecified Status: Acute (3) Hypertension: Code(s): I10 - Essential (primary) hypertension Status: Acute Plan Kathryn Flores is a 36 year old female with a history of hypertension who presented with right arm numbness and headache. Patient had not been taking her lisinopril as directed. She had headache and numbness in the right upper extremity, found to have multiple infarcts in the left hemisphere, involving the anterior and posterior circulation. CTA brain/carotid is concerning for moyamoya disease. Considering distribution of stroke, will also need to evaluate for cardioembolic etiology, and given age, will need to evaluate for hypercoagulability. - Patient unable to take ASA due to gastric sleeve, will start Plavix 75mg daily - Start statin, goal LDL < 70 - Check hypercoagulability labs -- ordered - Consult Cardiology for possible KARMEN/Loop - Will need outpatient follow-up with Neurointerventionalist for angiogram Consult date: 01/15/22 Reason for consult: Stroke HPI: Kathryn Flores is a 36 year old female with a history of hypertension who presented with right arm numbness and headache. Patient had not been taking her lisinopril as directed. She had headache and numbness in the right upper extremity for several days. When she presented to the emergency department her BP was 209/106. CT head showed L frontal hypodensity. Patient was admitted and MRI obtained which showed multiple acute infarcts in the L frontal, L parietal, and L occipital lobe. CTA showed no evidence of occlusion or stenosis but bilateral ICA were small in caliber with tapering at bilateral carotid siphons, raising concern for Moyamoya disease. She is now on Aspirin 81mg daily. Her LDL was 80 and HgbA1c 11. She denies any history of early stroke or cardiac conditions in family members. No personal or family history of miscarriages, clotting issues, or genetic conditions. Patient does have a grandfather that had a stroke at old age. Patient presently denies any focal symptoms. She intermittently will have RUE numbness. She denies any weakness, speech issues, or vision changes. Review of Systems Constitutional: Constitutional: Reports no additional constitutional complaints Eyes: Eyes: Reports no additional eye complaints ENT: Reports system reviewed and no additional complaints, except as documented Cardiovascular: Cardiovascular: Reports no additional cardiovascular complaints Respiratory: Respiratory: Reports no additional respiratory complaints Gastrointestinal: Gastrointestinal: Reports no additional gastrointestinal complaints Genitourinary: Genitourinary: Reports no additional female genitourinary complaints Musculoskeletal: Musculoskeletal: Reports no additional musculoskeletal complaints Integumentary/Breasts: Skin/Breast: Reports system reviewed and no additional complaints, except as docu Neurologic: Reports as per HPI Psychiatric: Psychiatric: Reports no additional psychiatric complaints PMFSH Past Medical History Medical History Hypertension Surgical History Surgical History H/O gastric sleeve Social History Social History Smoking status: Never smoker Alcohol intake: current Drinks per week: 1 Substance use: never Lack of Transportation: No Lack of Food: Never True Current Housing: I Have Housing Concerned About Future Housing: No Difficulty Paying Gas/Electric Bills: No Difficulty Paying for Meds: No Currently Unemployed: No Education: Trade/Vocational Certificate Difficulty w/ Childcare or Family C
[2022-01-15 12:19] LABS: Glucose Point of Care 281 mg/dl (65-105)
--- NOTE | 2022-01-15 13:53 | PM.CNCAR ---
Assessment and Plan Assessment and plan (1) Cerebral vascular disease: Code(s): I67.9 - Cerebrovascular disease, unspecified Status: Acute (2) Acute stroke due to ischemia: Code(s): I63.9 - Cerebral infarction, unspecified Status: Acute (3) Hypertension: Code(s): I10 - Essential (primary) hypertension Status: Acute Plan KARMEN discussed with the patient, including procedural details, risks vs benefits, alternative options. Patient agreeable for KARMEN. Will perform KARMEN tomorrow. Patient to be NPO at midnight. I do not perform loop recorder implantation, however, will discuss with my partner who does. History of Present Illness History of Present Illness Consult date/time: 01/15/22 13:53 Requesting physician: Ella Jiang MD Consult reason: Other (Stroke) Reason For Visit: Hypertensive Urgency Narrative: We are being consulted for KARMEN and loop recorder. This is a 36-year-old female with a history of hypertension who unfortunately had an acute CVA. She presented with right arm numbness and headache. Had not been taking Lisinopril as prescribed. Brain MRI showed multiple acute infarcts in the left frontal, left parietal, and left occipital lobes. The distribution involving unilateral both anterior and posterior circulation suggests either shower of emboli including through a patent left posterior commuting artery verus unilateral watershed infarcts resulting hypotension in the setting of left-sided flow limiting stenosis. Carotid doppler showed minimal if any atherosclerotic plaque but with elevated velocities in VEGA. Head and neck CT show possible moyamoya disease. EKG showing sinus rhythm. Telemetry with sinus rhythm. TTE this admission showing LVEF 65-70%, moderately increased left ventricular wall thickness. Grade 1 diastolic dysfunction. RVSP 51mmHg. Patient is resting comfortably on my exam. She denies any cardiac symptoms. Says her headache is now resolved. Reports some weakness in her right hand. Review of Systems Review of Systems: 12-point ROS obtained. Negative, unless stated in HPI. [facility] Past Medical History Medical History Hypertension Surgical History Surgical History H/O gastric sleeve Social History Social History Smoking status: Never smoker Alcohol intake: current Drinks per week: 1 Substance use: never Lack of Transportation: No Lack of Food: Never True Current Housing: I Have Housing Concerned About Future Housing: No Difficulty Paying Gas/Electric Bills: No Difficulty Paying for Meds: No Currently Unemployed: No Education: Trade/Vocational Certificate Difficulty w/ Childcare or Family Care: No Spiritual care concerns: No Meds Home Medications and Allergies Home Medications Medication Instructions Recorded Confirmed Type cyclobenzaprine 5 mg tablet 5 mg PO TID PRN muscle spasm #12 05/18/21 01/14/22 Rx tabs ergocalciferol (vitamin D2) 1,250 1,250 mcg PO WEEKLY 01/14/22 01/14/22 History mcg (50,000 unit) capsule glyburide 5 mg tablet 5 mg PO DAILY 01/14/22 01/14/22 History metformin 1,000 mg tablet 1,000 mg PO DAILY 01/14/22 01/14/22 History Allergies Allergy/AdvReac Type Severity Reaction Status Date / Time No Known Allergies Allergy Verified 01/14/22 02:41 Vital Signs Vital Signs - 24 hr 01/14/22 15:56 01/14/22 16:00 01/14/22 20:52 Temperature 35.9 C L Pulse Rate 98 99 Respiratory Rate 20 Blood Pressure 137/79 Pulse Oximetry 96 Oxygen Delivery Room Air 01/14/22 20:00 01/15/22 00:00 01/15/22 03:41 Temperature 36.1 C L Pulse Rate 97 92 91 Respiratory Rate 18 Blood Pressure 175/97 H Pulse Oximetry 97 Oxygen Delivery 01/15/22 04:00 01/15/22 08:00 Temperature Pulse Rate 87 91 Respiratory Rate Blood
--- NOTE | 2022-01-15 15:26 | PM.IMPN ---
Progress Note: A&P Assessment and Plan (1) Cerebral vascular disease: Code(s): I67.9 - Cerebrovascular disease, unspecified Status: Acute Assessment and Plan: ED-HPI narrative: Patient a 36-year-old female who presents the emergency department with chief complaint of headache and right arm numbness.? Patient reports that symptoms have been ongoing since last patient reports that she has history of hypertension and has not been taking her lisinopril for some time.? Patient reports that she has been having headache in the left frontal area patient is a 40-year-old female with history of hypertension at 1 time she was taking lisinopril but has not taken it for several months, patient denies any family history of coronary artery disease or stroke, presented emergency department with complaint of left frontal headache, patient denies any other complaint blurry vision, any numbness weakness in upper or lower extremity, currently patient states her headache is resolved. to further evaluate patient had a CT scan of the head which showed: 1. Focal hypoattenuation left frontal lobe, suspicious for acute infarction. Mass less favored. Recommend correlation with MRI. No significant mass effect or intracranial hemorrhage. MRI of the brain showed similarly 1. 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 The distribution involving unilateral both anterior and posterior circulation suggests either shower of emboli including through a patent left posterior commuting artery versus unilateral watershed infarcts resulting hypotension in the setting of left-sided flow limiting stenoses. communicated with Neurology further workup with CTA of the head and neck echo is ordered, will start the patient on aspirin will do the lipid profile, also pawn arrival patient had a significant elevated blood pressure, will continue permissively hypertension monitoring and keep the systolic blood pressure below 180 with hydralazine, once clinically stable will have PT OT evaluate the patient and further recommendation to follow. 01/15/2022 interval history: patient remains clinically stable has no new complaint, seen by neurologist suspect patient may had embolic event and recommended to consult Cardiology for possible KARMEN to further evaluate, patient is scheduled for KARMEN tomorrow, patient blood sugar were checked and elevated her hemoglobin A1c is 11 patient states she has not taken her diabetic medication for 2 months, will monitor with sliding scale and start the patient on oral anti diabetic medications once clinically stable. will continue to monitor will have PT OT evaluate the patient. (2) Hypertensive urgency: Code(s): I16.0 - Hypertensive urgency Status: Acute Assessment and Plan: upon arrival patient's systolic blood pressure was 209/106 patient was given hydralazine and labetalol will permissively monitor patient blood pressure and keep systolic blood pressure below 180 with hydralazine 10 mg as needed (3) H/O gastric sleeve: Code(s): Z90.3 - Acquired absence of stomach [part of] Status: Acute Assessment and Plan: patient with history of morbid obesity had gastric bypass surgery (4) Hypertension: Code(s): I10 - Essential (primary) hypertension Status: Acute Assessment and Plan: patient with history of hypertension see has not taken her lisinopril for 2 months for next 48-72 hours will monitor her blood pressure keep the systolic blood pressure below 180 (5) Diabetes 1.5, managed as type 2: Code(s): E13.9 - Other specified diabetes mellitus without complications Status: Acute Assessment and Plan: patient with history of diabetes has not taken the medication for 2 months patient hemoglobin A1c is 11, will monitor with sliding scale, will have nurses educator consult the patient and further recommendation to follow.
[2022-01-15] MEDS: ENOXAPARIN 40 MG/0.4 ML SYRINGE SUB-Q (16:37)
[2022-01-15 17:16] LABS: Glucose Point of Care 249 mg/dl (65-105)
[2022-01-15] MEDS: hydrALAZINE HCL 20 MG/ML VIAL 10 MG IV PUSH (20:28)
[2022-01-15 21:26] LABS: Glucose Point of Care 234 mg/dl (65-105)
[2022-01-15 23:55] LABS: Hematocrit 42.5 % (37.0-47.0); Hemoglobin 13.9 g/dL (12.0-15.0); Mean Corpuscular HGB Conc 32.7 g/dl (32-36); Mean Corpuscular Hemoglobin 26.9 pg (26-34); Mean Corpuscular Volume 82.2 fl (80-100); Mean Platelet Volume 9.8 fl (7.4-10.4); Platelet Count Result 270 k/mm3 (150-375); Red Blood Count 5.17 M/mm3 (4.2-5.4); Red Cell Distribution Width 13.2 % (11.5-14.5); White Blood Count 10.6 K/mm3 (4.5-10.0)
[2022-01-16] VITALS (24 sets, daily range): BP systolic 141–190; BP diastolic 81–162; PULSE 78–105; RESP 15–28; TEMP 36–36.8; O2SAT 95–100; BMI 46.4
[2022-01-16 06:34] LABS: Hematocrit 40.7 % (37.0-47.0); Hemoglobin 13.3 g/dL (12.0-15.0); Mean Corpuscular HGB Conc 32.7 g/dl (32-36); Mean Corpuscular Hemoglobin 27.5 pg (26-34); Mean Corpuscular Volume 84.3 fl (80-100); Mean Platelet Volume 9.7 fl (7.4-10.4); Platelet Count Result 241 k/mm3 (150-375); Red Blood Count 4.83 M/mm3 (4.2-5.4); Red Cell Distribution Width 13.2 % (11.5-14.5); White Blood Count 10.2 K/mm3 (4.5-10.0)
[2022-01-16 06:47] LABS: Alanine Aminotransferase 18 U/L (6-35); Albumin Level 3.7 g/dL (3.5-5.1); Alkaline Phosphatase 62 U/L (38-126); Anion Gap 3 mmol/L (8-16); Aspartate Amino Transferase 23 U/L (14-36); Bilirubin,Total 0.4 mg/dL (0.2-1.3); Blood Urea Nitrogen 11 mg/dL (7-17); Calcium 8.7 mg/dL (8.4-10.2); Carbon Dioxide 29 mmol/L (22-30); Chloride 102 mmol/L (98-107); Estimated CRCL calculation 172 ml/min; Estimated Glomerular Filt Rate > 60; Glucose 197 mg/dL (65-110); Potassium 4.2 mmol/L (3.4-5.0); Sodium 134 mmol/L (137-145)
[2022-01-16] MEDS: CLOPIDOGREL BISULFATE 75 MG TABLET PO (08:30)
[2022-01-16] MEDS: ENOXAPARIN 40 MG/0.4 ML SYRINGE SUB-Q (08:30)
[2022-01-16 08:52] LABS: Glucose Point of Care 226 mg/dl (65-105)
[2022-01-16] MEDS: INSULIN ASPART (*BKC) 100 UNITS/ML SUB-Q ×3 (09:16→17:59)
--- NOTE | 2022-01-16 10:48 | PM.PNCARD ---
Progress Note: A&P Assessment and Plan (1) Acute stroke due to ischemia: Code(s): I63.9 - Cerebral infarction, unspecified Status: Acute Plan Proceed with KARMEN today. If KARMEN negative, then will plan for loop recorder implantation with Dr. Shirley. Subjective Date/time seen: 01/16/22 10:48 Interval history: Reason for visit: Acute CVA, likely embolic HPI: This is a 36-year-old female with a history of hypertension who unfortunately had an acute CVA. She presented with right arm numbness and headache. Had not been taking Lisinopril as prescribed. Brain MRI showed multiple acute infarcts in the left frontal, left parietal, and left occipital lobes. The distribution involving unilateral both anterior and posterior circulation suggests either shower of emboli including through a patent left posterior commuting artery versus unilateral watershed infarcts resulting hypotension in the setting of left-sided flow limiting stenosis. Carotid doppler showed minimal if any atherosclerotic plaque but with elevated velocities in VEGA. Head and neck CT show possible moyamoya disease. EKG showing sinus rhythm. Telemetry with sinus rhythm. TTE this admission showing LVEF 65-70%, moderately increased left ventricular wall thickness. Grade 1 diastolic dysfunction. RVSP 51mmHg. Patient is resting comfortably on my exam. She denies any cardiac symptoms. Says her headache is now resolved. Reports some weakness in her right hand. Date of service 01/16/2022: KARMEN this morning. If KARMEN is negative, then will proceed with loop recorder implantation with Dr. Shirley. Patient feeling well this AM. Review of Systems Review of Systems: 8-point ROS obtained. Negative, unless stated in HPI. Exam Const: General: comfortable and no acute distress HENMT: Mouth: Yes moist mucous membranes Eyes: General: appearance normal, both eyes and all related structures Sclera: sclerae normal Resp: Effort & Inspection: normal respiratory effort Auscultation: clear to auscultation bilaterally Cardio: Rate: regular rate Rhythm: regular rhythm Heart sounds: no murmurs Skin: General skin exam: normal color Neuro: Speech: normal speech Extrem: General: normal to inspection Psych: Mental Status: mental status grossly normal Affect: normal affect Objective Data Vital Signs Vital Signs: Vital Signs - 24 hr 01/15/22 12:00 01/15/22 15:08 01/15/22 16:00 Temperature 36.2 C L Pulse Rate 85 89 85 Respiratory Rate 18 Blood Pressure 148/91 H Pulse Oximetry 98 Oxygen Delivery 01/15/22 19:57 01/15/22 21:55 01/16/22 00:13 Temperature 35.8 C L 36.1 C L Pulse Rate 84 90 Respiratory Rate 20 20 Blood Pressure 201/81 H 190/96 H 141/84 H Pulse Oximetry 99 99 Oxygen Delivery 01/15/22 20:00 01/16/22 00:00 01/16/22 03:00 Temperature 36.0 C L Pulse Rate 84 105 H 93 Respiratory Rate 20 Blood Pressure 166/81 H Pulse Oximetry 97 Oxygen Delivery 01/16/22 04:00 01/16/22 09:15 Temperature Pulse Rate 80 Respiratory Rate Blood Pressure Pulse Oximetry Oxygen Delivery Room Air Intake/Output Intake/Output: Intake & Output 01/13/22 01/14/22 01/15/22 01/16/22 23:59 23:59 23:59 23:59 Intake Total 790 1318 390 Balance 790 1318 390 Meds/Results Medications: Active Medications Generic Name Dose Route Start Last Admin Trade Name Freq PRN Reason Stop Dose Admin Clopidogrel Bisulfate 75 mg 01/15/22 14:00 01/16/22 08:30 Clopidogrel Bisulfate 75 Mg Tablet PO 75 mg QAM JOON Administration Dextrose 12.5 gm 01/14/22 17:35 Dextrose 50% 25 Gm/50 Ml Syringe IV PUSH PRN PRN Hypoglycemia Protocol Enoxaparin Sodium 40 mg 01/15/22 15:15 01/16/22 08:30 Enoxaparin 40 Mg/0.4 Ml Syringe SUB-Q 40 mg DAILY JOON Administration Glucagon 1 mg 01/14/22 17:35 Glucagon For Inj 1 Mg Vial IM PRN PRN Hypoglycemia Protocol Glucose 15 gm 01/14/22 17:35 Glu
--- NOTE | 2022-01-16 12:10 | SUR.OPER ---
pt was brought to [facility], time out was called and procedure was started. KARMEN probe was malfunctioning, a new probe was brought in, which did not solve the issue. The pt started to bleed from the mouth and the procedure was aborted per MD. pt will be monitored until fully awake and arousable. VSS - See [facility] for vitals.
--- NOTE | 2022-01-16 12:12 | WPDMODSED ---
Moderate Sedation Note-Pt Data Patient Data Diagnosis: CVA Present Complaint: CVA Procedure to be performed/Plan: KARMEN Allergies Allergy/AdvReac Type Severity Reaction Status Date / Time No Known Allergies Allergy Verified 01/14/22 02:41 Home Medications Medication Instructions Recorded Confirmed Type cyclobenzaprine 5 mg tablet 5 mg PO TID PRN muscle spasm #12 05/18/21 01/14/22 Rx tabs ergocalciferol (vitamin D2) 1,250 1,250 mcg PO WEEKLY 01/14/22 01/14/22 History mcg (50,000 unit) capsule glyburide 5 mg tablet 5 mg PO DAILY 01/14/22 01/14/22 History metformin 1,000 mg tablet 1,000 mg PO DAILY 01/14/22 01/14/22 History Current Medications: Active Medications Clopidogrel Bisulfate (Clopidogrel Bisulfate 75 Mg Tablet) 75 mg PO QAM JOON Last Admin: 01/16/22 08:30 Dose: 75 mg Dextrose (Dextrose 50% 25 Gm/50 Ml Syringe) 12.5 gm IV PUSH PRN PRN; Protocol PRN Reason: Hypoglycemia Enoxaparin Sodium (Enoxaparin 40 Mg/0.4 Ml Syringe) 40 mg SUB-Q DAILY JOON Last Admin: 01/16/22 08:30 Dose: 40 mg Glucagon (Glucagon For Inj 1 Mg Vial) 1 mg IM PRN PRN; Protocol PRN Reason: Hypoglycemia Glucose (Glucose Oral Gel 15 Gm Of Glucse In 37.5 Gm Tube) 15 gm PO PRN PRN; Protocol PRN Reason: Hypoglycemia Hydralazine HCl (Hydralazine Hcl 20 Mg/Ml Vial) 10 mg IV PUSH Q8H PRN PRN Reason: Blood Pressure - High Last Admin: 01/15/22 20:28 Dose: 10 mg Dextrose (Dextrose 5% 1,000 Ml) 1,000 mls @ 100 mls/hr IVPB PRN PRN; Protocol PRN Reason: Hypoglycemia Insulin Aspart (Insulin Aspart (*Bkc) 100 Units/Ml) 2 - 5 units SUB-Q TIDWM JOON; Protocol Last Admin: 01/16/22 12:01 Dose: Not Given Ondansetron HCl (Ondansetron Inj 4 Mg/2 Ml Vial) 4 mg IV PUSH Q4H PRN PRN Reason: Nausea Perflutren Lipid Microsphere (Perflutren Lipid Microspheres 1.5 Ml Vial Diluted To 10 Ml Total Volume) 0 ml IV PUSH ONCE PRN; Protocol PRN Reason: adequate visualization Stop: 01/16/22 13:27 Sedation/Anesthesia: No previous sedation/anesthesia problems (including family history). [facility] Past Medical History Medical History Hypertension Surgical History Surgical History H/O gastric sleeve Social History Social History Smoking status: Never smoker Alcohol intake: current Drinks per week: 1 Substance use: never Lack of Transportation: No Lack of Food: Never True Current Housing: I Have Housing Concerned About Future Housing: No Difficulty Paying Gas/Electric Bills: No Difficulty Paying for Meds: No Currently Unemployed: No Education: Trade/Vocational Certificate Difficulty w/ Childcare or Family Care: No Spiritual care concerns: No Mod Sed Physical Exam Physical Exam Pre Procedural Exam: Normal: Appearance, Heart Rate, Heart Rhythm, Neuro Exam, Abdomen, Extremities and Skin Hours since solid foods: 12 Hours since liquid intake: 8 Mallampati Classification: class III Internal Medicine - PN: Obj Da Vital Signs Vital Signs: Vital Signs - 24 hr 01/15/22 15:08 01/15/22 16:00 01/15/22 19:57 Temperature 36.2 C L 35.8 C L Pulse Rate 89 85 84 Respiratory Rate 18 20 Blood Pressure 148/91 H 201/81 H Pulse Oximetry 98 99 Oxygen Delivery Oxygen Flow Rate 01/15/22 21:55 01/16/22 00:13 01/15/22 20:00 Temperature 36.1 C L Pulse Rate 90 84 Respiratory Rate 20 Blood Pressure 190/96 H 141/84 H Pulse Oximetry 99 Oxygen Delivery Oxygen Flow Rate 01/16/22 00:00 01/16/22 03:00 01/16/22 04:00 Temperature 36.0 C L Pulse Rate 105 H 93 80 Respiratory Rate 20 Blood Pressure 166/81 H Pulse Oximetry 97 Oxygen Delivery Oxygen Flow Rate 01/16/22 09:15 01/16/22 10:49 01/16/22 11:10 Temperature 36.6 C Pulse Rate 92 90 Respiratory Rate 15 17 Blood Pressure 178/101 H 183/103 H Pulse Oximetr
--- NOTE | 2022-01-16 12:13 | P.PCNTEE_ITS ---
KARMEN TransEsophageal Echocardiogram Date of procedure: 01/16/22 Procedure Type: Date of Procedure: 01/16/2022 Brief History Of Present Illness: Patient is a pleasant 36-year-old female with a history of hypertension who is referred for transesophageal echocardiogram for further evaluation for acute CVA. Procedure In Detail: After verbal and written informed consent was obtained, the patient risks, benefits, and alternatives explained in detail. The patient agreed to proceed with the plan of care as outlined above.?The patient was evaluated at bedside in the [facility] procedure room.?The posterior oropharynx, neck, and jaw angle all within normal limits on examination. Lungs were clear to auscultation. See pre-sedation note for further details. The patient was then placed in the appropriate 30 to 45 degree angle supine position at a slight left lateral decubitus position.?Patient was monitored throughout the study with telemetry, oxygen saturation, end-tidal CO2 monitoring, blood pressure, heart rate, and respirations.? The posterior hypopharynx was then locally anesthetized using repeated administration of Hurricaine spray as well as gargled viscous lidocaine.? After local anesthetic of the posterior hypopharynx was achieved and the oral bite block placed, moderate sedation was administered.? After confirmation of adequate moderate sedation, the transesophageal echocardiogram probe was advanced through the oral bite block into the posterior hypopharynx and into the esophagus easily and without complication. Initial probe insertion showed a significant amount of artifact concerning for possible broken crystal. Echo system was shut down and restarted, and still no improvement. Given concern for probe malfunction, probe removed. We obtained a second probe after approximately 15 minutes, and the patient was sedated again. Once appropriate sedation was obtained, probe was inserted easily into the esophagus. No resistance was felt. There was a significant amount of artifact. At this time, patient started coughing a lot, and suctioning showed blood. Given this, we aborted the procedure. Moderate Sedation/Anesthesia administration: Patient reports no prior problems with sedation/anesthesia. Please see pre- sedation noted for physical examination documentation. As noted above, after adequate local anesthesia of the posterior hypopharynx was achieved, a total of?5mg intravenous Versed and a total of 150mcg intravenous Fentanyl in multiple divided doses was administered for moderate sedation.? Sedation start time was 11:06 and end time was 12:00 for a total intra-service/procedure face-face time of 54 minutes.? Sedation was administered by a qualified/certified observer?Sharlene Casper RN under my supervision with intra-procedure [id number] observation and management throughout the entirety of the procedure.? Complications: Initial probe insertion showed a significant amount of artifact concerning for possible broken crystal. Echo system was shut down and restarted, and still no improvement. Given concern for probe malfunction, probe removed. We obtained a second probe after approximately 15 minutes, and the patient was sedated again. Once appropriate sedation was obtained, probe was inserted easily into the esophagus. No resistance was felt. There was a significant amount of artifact. At this time, patient started coughing a lot, and suctioning showed blood. Given this, we aborted the procedure. This dictation may have been done utilizing a voice recognition system.? Attempts have been made to correct errors. However, there may be uncorrected grammatical, spelling, and recognition errors present.
[2022-01-16 13:15] LABS: Glucose Point of Care 229 mg/dl (65-105)
--- NOTE | 2022-01-16 13:28 | PM.IMPN ---
Progress Note: A&P Assessment and Plan (1) Cerebral vascular disease: Code(s): I67.9 - Cerebrovascular disease, unspecified Status: Acute Assessment and Plan: ED-HPI narrative: Patient a 36-year-old female who presents the emergency department with chief complaint of headache and right arm numbness.? Patient reports that symptoms have been ongoing since last patient reports that she has history of hypertension and has not been taking her lisinopril for some time.? Patient reports that she has been having headache in the left frontal area patient is a 40-year-old female with history of hypertension at 1 time she was taking lisinopril but has not taken it for several months, patient denies any family history of coronary artery disease or stroke, presented emergency department with complaint of left frontal headache, patient denies any other complaint blurry vision, any numbness weakness in upper or lower extremity, currently patient states her headache is resolved. to further evaluate patient had a CT scan of the head which showed: 1. Focal hypoattenuation left frontal lobe, suspicious for acute infarction. Mass less favored. Recommend correlation with MRI. No significant mass effect or intracranial hemorrhage. MRI of the brain showed similarly 1. 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 The distribution involving unilateral both anterior and posterior circulation suggests either shower of emboli including through a patent left posterior commuting artery versus unilateral watershed infarcts resulting hypotension in the setting of left-sided flow limiting stenoses. communicated with Neurology further workup with CTA of the head and neck echo is ordered, will start the patient on aspirin will do the lipid profile, also pawn arrival patient had a significant elevated blood pressure, will continue permissively hypertension monitoring and keep the systolic blood pressure below 180 with hydralazine, once clinically stable will have PT OT evaluate the patient and further recommendation to follow. 01/16/2022 interval history: patient remains clinically stable has no new complaint, seen by neurologist suspect patient may had embolic event and recommended to consult Cardiology for possible KARMEN to further evaluate, patient is scheduled for KARMEN today, today patient is present and gave updates and answer all his questions, patient blood sugar were checked and elevated her hemoglobin A1c is 11 patient states she has not taken her diabetic medication for 2 months, will monitor with sliding scale and start the patient on oral anti diabetic medications once clinically stable, today patient will be seen by molding supervisor and further recommendation to follow, will continue to monitor will have PT OT evaluate the patient. (2) Hypertensive urgency: Code(s): I16.0 - Hypertensive urgency Status: Acute Assessment and Plan: upon arrival patient's systolic blood pressure was 209/106 patient was given hydralazine and labetalol will permissively monitor patient blood pressure and keep systolic blood pressure below 180 with hydralazine 10 mg as needed (3) H/O gastric sleeve: Code(s): Z90.3 - Acquired absence of stomach [part of] Status: Acute Assessment and Plan: patient with history of morbid obesity had gastric bypass surgery (4) Hypertension: Code(s): I10 - Essential (primary) hypertension Status: Acute Assessment and Plan: patient with history of hypertension see has not taken her lisinopril for 2 months for next 48-72 hours will monitor her blood pressure keep the systolic blood pressure below 180 (5) Diabetes 1.5, managed as type 2: Code(s): E13.9 - Other specified diabetes mellitus without complications Status: Acute Assessment and Plan: patient with history of diabetes has not taken the medication
[2022-01-16 17:06] LABS: Glucose Point of Care 245 mg/dl (65-105)
[2022-01-16 22:49] LABS: Hematocrit 39.3 % (37.0-47.0); Hemoglobin 12.7 g/dL (12.0-15.0); Mean Corpuscular HGB Conc 32.3 g/dl (32-36); Mean Corpuscular Hemoglobin 27.2 pg (26-34); Mean Corpuscular Volume 84.2 fl (80-100); Mean Platelet Volume 9.6 fl (7.4-10.4); Platelet Count Result 231 k/mm3 (150-375); Red Blood Count 4.67 M/mm3 (4.2-5.4); Red Cell Distribution Width 13.2 % (11.5-14.5); White Blood Count 9.6 K/mm3 (4.5-10.0)
[2022-01-16 23:09] LABS: Glucose Point of Care 202 mg/dl (65-105)
[2022-01-17] VITALS (10 sets, daily range): BP systolic 143–176; BP diastolic 68–98; PULSE 76–100; RESP 14–18; TEMP 36.2–36.9; O2SAT 99–100
[2022-01-17 06:09] LABS: Hematocrit 40.3 % (37.0-47.0); Mean Corpuscular HGB Conc 32.3 g/dl (32-36); Mean Corpuscular Hemoglobin 27.4 pg (26-34); Mean Corpuscular Volume 84.8 fl (80-100); Mean Platelet Volume 9.8 fl (7.4-10.4); Platelet Count Result 241 k/mm3 (150-375); Red Blood Count 4.75 M/mm3 (4.2-5.4); Red Cell Distribution Width 13.1 % (11.5-14.5); White Blood Count 7.8 K/mm3 (4.5-10.0)
[2022-01-17 06:29] LABS: Alanine Aminotransferase 18 U/L (6-35); Albumin Level 3.6 g/dL (3.5-5.1); Alkaline Phosphatase 65 U/L (38-126); Anion Gap 5 mmol/L (8-16); Aspartate Amino Transferase 22 U/L (14-36); Bilirubin,Total 0.6 mg/dL (0.2-1.3); Blood Urea Nitrogen 13 mg/dL (7-17); Calcium 8.4 mg/dL (8.4-10.2); Carbon Dioxide 26 mmol/L (22-30); Chloride 103 mmol/L (98-107); Estimated CRCL calculation 145 ml/min; Estimated Glomerular Filt Rate > 60; Glucose 235 mg/dL (65-110); Potassium 3.7 mmol/L (3.4-5.0); Sodium 134 mmol/L (137-145)
[2022-01-17] MEDS: ENOXAPARIN 40 MG/0.4 ML SYRINGE SUB-Q (08:06)
[2022-01-17] MEDS: CLOPIDOGREL BISULFATE 75 MG TABLET PO (08:06)
[2022-01-17 09:02] LABS: Glucose Point of Care 217 mg/dl (65-105)
[2022-01-17] MEDS: INSULIN ASPART (*BKC) 100 UNITS/ML SUB-Q ×2 (09:39→17:43)
--- NOTE | 2022-01-17 10:19 | WPDNEUROPN ---
Progress Note: A&P Assessment and Plan (1) Acute stroke due to ischemia: Code(s): I63.9 - Cerebral infarction, unspecified Status: Acute (2) Cerebral vascular disease: Code(s): I67.9 - Cerebrovascular disease, unspecified Status: Acute (3) Hypertensive urgency: Code(s): I16.0 - Hypertensive urgency Status: Acute Plan Kathryn Flores is a 36 year old female with a history of hypertension who presented with right arm numbness and headache. Patient had not been taking her lisinopril as directed. She had headache and numbness in the right upper extremity, found to have multiple infarcts in the left hemisphere, involving the anterior and posterior circulation. CTA brain/carotid is concerning for moyamoya disease. Considering distribution of stroke, will also need to evaluate for cardioembolic etiology, and given age, will need to evaluate for hypercoagulability. - Patient unable to take ASA due to gastric sleeve; continue Plavix 75mg daily - Start statin, goal LDL < 70 - Check hypercoagulability labs -- ordered and pending - Cardiology consulted for KARMEN/Loop - Will need outpatient follow-up with Neurointerventionalist for angiogram Subjective Date/time seen: 01/17/22 10:19 Interval history: Kathryn Flores is a 36 year old female with a history of hypertension who presented with right arm numbness and headache. Patient had not been taking her lisinopril as directed. She had headache and numbness in the right upper extremity for several days. When she presented to the emergency department her BP was 209/106. CT head showed L frontal hypodensity. Patient was admitted and MRI obtained which showed multiple acute infarcts in the L frontal, L parietal, and L occipital lobe. CTA showed no evidence of occlusion or stenosis but bilateral ICA were small in caliber with tapering at bilateral carotid siphons, raising concern for Moyamoya disease. She is now on Aspirin 81mg daily. Her LDL was 80 and HgbA1c 11. She denies any history of early stroke or cardiac conditions in family members. No personal or family history of miscarriages, clotting issues, or genetic conditions. Patient does have a grandfather that had a stroke at old age. Patient continues to have RUE numbness. She denies any weakness, speech issues, or vision changes. Surface echo was unrevealing. An attempt was made for KARMEN yesterday but had to be aborted due to probe malfunction. Patient reports that the plan is to undergo KARMEN with anesthesia tomorrow. Review of Systems Constitutional: Constitutional: Reports no additional constitutional complaints Eyes: Eyes: Reports no additional eye complaints ENT: Reports system reviewed and no additional complaints, except as documented Cardiovascular: Cardiovascular: Reports no additional cardiovascular complaints Respiratory: Respiratory: Reports no additional respiratory complaints Gastrointestinal: Gastrointestinal: Reports no additional gastrointestinal complaints Genitourinary: Genitourinary: Reports no additional female genitourinary complaints Musculoskeletal: Musculoskeletal: Reports no additional musculoskeletal complaints Integumentary/Breasts: Skin/Breast: Reports system reviewed and no additional complaints, except as docu Neurologic: Reports as per HPI Psychiatric: Psychiatric: Reports no additional psychiatric complaints Exam Const: General: comfortable and no acute distress HENMT: Mouth: Yes moist mucous membranes Eyes: Pupils: Equal, round and reactive pupils present EOM: EOMs intact bilaterally Resp: Effort & Inspection: normal respiratory effort Auscultation: clear to auscultation bilaterally Cardio: Rate: regular rate Rhythm: regular rhythm GI: GI Palp: Yes Soft to palpation Auscultation: normal bowel sounds Skin: General skin exam: normal color Neuro: Other: AOx3, Pupils equal and reactive bilaterally, EOMI, face symmetric, facial sensation intact, tongue p
[2022-01-17 12:26] LABS: Glucose Point of Care 246 mg/dl (65-105)
--- NOTE | 2022-01-17 13:13 | PM.IMPN ---
Progress Note: A&P Assessment and Plan (1) Cerebral vascular disease: Code(s): I67.9 - Cerebrovascular disease, unspecified Status: Acute Assessment and Plan: ED-HPI narrative: Patient a 36-year-old female who presents the emergency department with chief complaint of headache and right arm numbness.? Patient reports that symptoms have been ongoing since last patient reports that she has history of hypertension and has not been taking her lisinopril for some time.? Patient reports that she has been having headache in the left frontal area patient is a 40-year-old female with history of hypertension at 1 time she was taking lisinopril but has not taken it for several months, patient denies any family history of coronary artery disease or stroke, presented emergency department with complaint of left frontal headache, patient denies any other complaint blurry vision, any numbness weakness in upper or lower extremity, currently patient states her headache is resolved. to further evaluate patient had a CT scan of the head which showed: 1. Focal hypoattenuation left frontal lobe, suspicious for acute infarction. Mass less favored. Recommend correlation with MRI. No significant mass effect or intracranial hemorrhage. MRI of the brain showed similarly 1. 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 The distribution involving unilateral both anterior and posterior circulation suggests either shower of emboli including through a patent left posterior commuting artery versus unilateral watershed infarcts resulting hypotension in the setting of left-sided flow limiting stenoses. communicated with Neurology further workup with CTA of the head and neck echo is ordered, will start the patient on aspirin will do the lipid profile, also pawn arrival patient had a significant elevated blood pressure, will continue permissively hypertension monitoring and keep the systolic blood pressure below 180 with hydralazine, once clinically stable will have PT OT evaluate the patient and further recommendation to follow. 01/17/2022 interval history: patient remains clinically stable has no new complaint, seen by neurologist suspect patient may had embolic event and recommended to consult Cardiology for possible KARMEN to further evaluate, on 01/16 attempt was made to do KARMEN however patient had a persisting coug and bleeding during the procedure and it was stopped, may possible will try tomorrow, patient remains clinicaly stable and has no compliants, today patient is present and gave updates and answer all his questions, patient blood sugar were checked and has elevated hemoglobin A1c is 11 patient states she has not taken her diabetic medication for 2 months, will monitor with sliding scale and start the patient on oral anti diabetic medications once clinically stable, today patient will be seen by drip molder and further recommendation to follow, will continue to monitor will have PT OT evaluate the patient. (2) Hypertensive urgency: Code(s): I16.0 - Hypertensive urgency Status: Acute Assessment and Plan: upon arrival patient's systolic blood pressure was 209/106 patient was given hydralazine and labetalol will permissively monitor patient blood pressure and keep systolic blood pressure below 180 with hydralazine 10 mg as needed (3) H/O gastric sleeve: Code(s): Z90.3 - Acquired absence of stomach [part of] Status: Acute Assessment and Plan: patient with history of morbid obesity had gastric bypass surgery (4) Hypertension: Code(s): I10 - Essential (primary) hypertension Status: Acute Assessment and Plan: patient with history of hypertension see has not taken her lisinopril for 2 months for next 48-72 hours will monitor her blood pressure keep the systolic blood pressure below 180 (5) Diabetes 1.5, managed as type 2: Code(s
--- NOTE | 2022-01-17 13:32 | PC.NURSE ---
On 01/17/22, the student, [Katiuska Talbert], provided care and completed [facility] documentation on this patient. I have reviewed the student's documentation and agree with the findings.
[2022-01-17 17:18] LABS: Glucose Point of Care 209 mg/dl (65-105)
--- NOTE | 2022-01-17 17:42 | PC.NURSE ---
No insulin given @ lunch today. Provider is aware. No new orders were received.
[2022-01-18] VITALS (16 sets, daily range): BP systolic 152–198; BP diastolic 87–107; PULSE 80–114; RESP 16–28; TEMP 36.4–36.9; O2SAT 95–100
[2022-01-18 01:41] LABS: Hematocrit 38.8 % (37.0-47.0); Hemoglobin 12.5 g/dL (12.0-15.0); Mean Corpuscular HGB Conc 32.2 g/dl (32-36); Mean Corpuscular Hemoglobin 27.3 pg (26-34); Mean Corpuscular Volume 84.7 fl (80-100); Platelet Count Result 238 k/mm3 (150-375); Red Blood Count 4.58 M/mm3 (4.2-5.4)
[2022-01-18 04:42] LABS: Homocysteine 6.8 umol/L (<10.4)
[2022-01-18 06:02] LABS: Hematocrit 37.2 % (37.0-47.0); Hemoglobin 12.2 g/dL (12.0-15.0); Mean Corpuscular HGB Conc 32.8 g/dl (32-36); Mean Corpuscular Hemoglobin 27.6 pg (26-34); Mean Corpuscular Volume 84.2 fl (80-100); Mean Platelet Volume 9.6 fl (7.4-10.4); Platelet Count Result 228 k/mm3 (150-375); Red Blood Count 4.42 M/mm3 (4.2-5.4); Red Cell Distribution Width 12.9 % (11.5-14.5); White Blood Count 9.3 K/mm3 (4.5-10.0)
[2022-01-18 06:13] LABS: Alanine Aminotransferase 18 U/L (6-35); Albumin Level 3.5 g/dL (3.5-5.1); Alkaline Phosphatase 56 U/L (38-126); Anion Gap 5 mmol/L (8-16); Aspartate Amino Transferase 23 U/L (14-36); Bilirubin,Total 0.5 mg/dL (0.2-1.3); Blood Urea Nitrogen 13 mg/dL (7-17); Calcium 8.1 mg/dL (8.4-10.2); Carbon Dioxide 27 mmol/L (22-30); Chloride 102 mmol/L (98-107); Estimated CRCL calculation 145 ml/min; Estimated Glomerular Filt Rate > 60; Glucose 177 mg/dL (65-110); Sodium 134 mmol/L (137-145)
[2022-01-18 06:47] LABS: Glucose Point of Care 181 mg/dl (65-105)
[2022-01-18 08:33] LABS: Glucose Point of Care 193 mg/dl (65-105)
[2022-01-18] MEDS: ENOXAPARIN 40 MG/0.4 ML SYRINGE SUB-Q (09:20)
[2022-01-18] MEDS: CLOPIDOGREL BISULFATE 75 MG TABLET PO (09:20)
[2022-01-18 11:44] LABS: Glucose Point of Care 207 mg/dl (65-105)
[2022-01-18] MEDS: INSULIN ASPART (*BKC) 100 UNITS/ML SUB-Q ×2 (11:56→17:31)
--- NOTE | 2022-01-18 14:02 | PM.IMPN ---
Progress Note: A&P Assessment and Plan (1) Cerebral vascular disease: Code(s): I67.9 - Cerebrovascular disease, unspecified Status: Acute Assessment and Plan: ED-HPI narrative: Patient a 36-year-old female who presents the emergency department with chief complaint of headache and right arm numbness.? Patient reports that symptoms have been ongoing since last patient reports that she has history of hypertension and has not been taking her lisinopril for some time.? Patient reports that she has been having headache in the left frontal area patient is a 40-year-old female with history of hypertension at 1 time she was taking lisinopril but has not taken it for several months, patient denies any family history of coronary artery disease or stroke, presented emergency department with complaint of left frontal headache, patient denies any other complaint blurry vision, any numbness weakness in upper or lower extremity, currently patient states her headache is resolved. to further evaluate patient had a CT scan of the head which showed: 1. Focal hypoattenuation left frontal lobe, suspicious for acute infarction. Mass less favored. Recommend correlation with MRI. No significant mass effect or intracranial hemorrhage. MRI of the brain showed similarly 1. 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 The distribution involving unilateral both anterior and posterior circulation suggests either shower of emboli including through a patent left posterior commuting artery versus unilateral watershed infarcts resulting hypotension in the setting of left-sided flow limiting stenoses. communicated with Neurology further workup with CTA of the head and neck echo is ordered, will start the patient on aspirin will do the lipid profile, also pawn arrival patient had a significant elevated blood pressure, will continue permissively hypertension monitoring and keep the systolic blood pressure below 180 with hydralazine, once clinically stable will have PT OT evaluate the patient and further recommendation to follow. 01/18/2022 interval history: patient remains clinically stable has no new complaint, seen by neurologist suspect patient may had embolic event and recommended to consult Cardiology for possible KARMNE to further evaluate, on 01/16 attempt was made to do KARMEN however patient had a persisting coug and bleeding during the procedure and it was stopped, may possible will try tomorrow, patient remains clinicaly stable and has no compliants, today patient is present and gave updates and answer all his questions, patient blood sugar were checked and has elevated hemoglobin A1c is 11 patient states she has not taken her diabetic medication for 2 months, will monitor with sliding scale and start the patient on oral anti diabetic medications once clinically stable, patient seen by cosmetology educator and further recommendation to follow, Today patient will have KARMEN and further recommendation to follow, will continue to monitor will have PT OT evaluate the patient. (2) Hypertensive urgency: Code(s): I16.0 - Hypertensive urgency Status: Acute Assessment and Plan: upon arrival patient's systolic blood pressure was 209/106 patient was given hydralazine and labetalol will permissively monitor patient blood pressure and keep systolic blood pressure below 180 with hydralazine 10 mg as needed (3) H/O gastric sleeve: Code(s): Z90.3 - Acquired absence of stomach [part of] Status: Acute Assessment and Plan: patient with history of morbid obesity had gastric bypass surgery (4) Hypertension: Code(s): I10 - Essential (primary) hypertension Status: Acute Assessment and Plan: patient with history of hypertension see has not taken her lisinopril for 2 months for next 48-72 hours will monitor her blood pressure keep the systolic blood pressure below 18
--- NOTE | 2022-01-18 14:24 | P.PCNCC_ITS ---
Cardiac Cath Procedure Note Date of procedure:: 01/18/22 Performing physician:: Chay Kauffman MD Indication:: Cryptogenic stroke Brief clinical history:: this is a 36-year-old woman who unfortunately has sustained a CVA. Imaging suggests small CVAs in multi vascular distribution. In this setting PE has been recommended to rule out patent foramen ovale. Procedure Procedure performed:: Transesophageal echocardiogram with agitated saline contrast injection Sedation/Medication given:: sedation per Anesthesia Estimated blood loss:: 0 Procedure note:: patient was brought to the GI lab in the postabsorptive state where she was in the supine position. Or pharyngeal benzocaine was used and a bite block was placed. She was then sedated per the Anesthesia Service. The esophagus was easily intubated with the KARMEN probe and multi planer images were performed inspecting the interatrial septum. The patient then received injection of agitated saline contrast injection from the peripheral IV which provided excellent opacification of the right heart chambers. Following observation of this the color Doppler interrogation was performed of the atrial septum. The procedure was then terminated. Findings:: The left atrium is normal in size. The mitral valve appears to be anatomically normal there is no Doppler evidence of mitral regurgitation. The left ventricle is of normal dimension and appears mildly hypertrophied. Contractility appears to be grossly normal in all segments. The interatrial septum is thin in the midportion but there is no visible discontinuity and no visible patent foramen ovale. Color Doppler interrogation did not demonstrate any intracardiac shunting. Agitated saline contrast injection once again showed excellent opacification of the right sided chambers and there was no evidence of right to left shunting. Conclusion:: No evidence of patent foramen ovale based on transesophageal echocardiogram with saline contrast injection Chay Kauffman MD [facility]
--- NOTE | 2022-01-18 14:39 | SUR.PHASEII ---
phase II start @1426. 10mg labetalol given by [employer] CLERK for blood pressure management. Report called to 2 med RN@ 1440. Once pt is fully awake and arousable she will go back to room 260-1.
[2022-01-18 17:03] LABS: Glucose Point of Care 381 mg/dl (65-105)
[2022-01-18 21:50] LABS: Anti Cardio Antibody IgM <2.0 MPL-U/mL (<20.0); Anti Cardiolipin Antibody IgA <2.0 APL-U/mL (<20.0); Anti Cardiolipin Antibody IgG <2.0 GPL-U/mL (<20.0)
[2022-01-18 22:48] LABS: Antithrombin III Activity 139 % normal (80-135)
[2022-01-18 23:04] LABS: Glucose Point of Care 170 mg/dl (65-105)
[2022-01-18 23:28] LABS: Hematocrit 42.9 % (37.0-47.0); Hemoglobin 14.1 g/dL (12.0-15.0); Mean Corpuscular HGB Conc 32.9 g/dl (32-36); Mean Corpuscular Hemoglobin 27.5 pg (26-34); Mean Corpuscular Volume 83.6 fl (80-100); Mean Platelet Volume 9.8 fl (7.4-10.4); Platelet Count Result 275 k/mm3 (150-375); Red Blood Count 5.13 M/mm3 (4.2-5.4)
[2022-01-19] VITALS: PULSE 92
[2022-01-19 04:00] VITALS: PULSE 76
[2022-01-19 04:23] VITALS: BP 160/70; PULSE 92; RESP 18; TEMP 36.4; O2SAT 100
[2022-01-19 06:37] LABS: Hematocrit 36.5 % (37.0-47.0); Hemoglobin 11.8 g/dL (12.0-15.0); Mean Corpuscular HGB Conc 32.3 g/dl (32-36); Mean Corpuscular Hemoglobin 26.7 pg (26-34); Mean Corpuscular Volume 82.6 fl (80-100); Platelet Count Result 231 k/mm3 (150-375); Red Blood Count 4.42 M/mm3 (4.2-5.4); Red Cell Distribution Width 12.8 % (11.5-14.5); White Blood Count 9.1 K/mm3 (4.5-10.0)
[2022-01-19 06:54] LABS: Alanine Aminotransferase 27 U/L (6-35); Albumin Level 3.4 g/dL (3.5-5.1); Alkaline Phosphatase 60 U/L (38-126); Anion Gap 6 mmol/L (8-16); Aspartate Amino Transferase 32 U/L (14-36); Bilirubin,Total 0.6 mg/dL (0.2-1.3); Blood Urea Nitrogen 9 mg/dL (7-17); Calcium 8.2 mg/dL (8.4-10.2); Carbon Dioxide 25 mmol/L (22-30); Chloride 105 mmol/L (98-107); Estimated CRCL calculation 171 ml/min; Estimated Glomerular Filt Rate > 60; Glucose 167 mg/dL (65-110); Potassium 3.6 mmol/L (3.4-5.0); Sodium 136 mmol/L (137-145)
[2022-01-19 08:00] VITALS: PULSE 77
[2022-01-19 08:51] LABS: Glucose Point of Care 184 mg/dl (65-105)
[2022-01-19] MEDS: CLOPIDOGREL BISULFATE 75 MG TABLET PO (09:34)
[2022-01-19] MEDS: ENOXAPARIN 40 MG/0.4 ML SYRINGE SUB-Q (09:34)
--- NOTE | 2022-01-19 11:01 | PM.DS ---
DS: Admitting Diagnosis Discharge Date 01/19/2022 Admitting Diagnosis headache DS: Discharge Diagnosis Discharge Diagnosis (1) Cerebral vascular disease: Code(s): I67.9 - Cerebrovascular disease, unspecified Status: Acute Assessment and Plan: [facility] narrative: Patient a 36-year-old female who presents the emergency department with chief complaint of headache and right arm numbness.? Patient reports that symptoms have been ongoing since last patient reports that she has history of hypertension and has not been taking her lisinopril for some time.? Patient reports that she has been having headache in the left frontal area patient is a 40-year-old female with history of hypertension at 1 time she was taking lisinopril but has not taken it for several months, patient denies any family history of coronary artery disease or stroke, presented emergency department with complaint of left frontal headache, patient denies any other complaint blurry vision, any numbness weakness in upper or lower extremity, currently patient states her headache is resolved. to further evaluate patient had a CT scan of the head which showed: 1. Focal hypoattenuation left frontal lobe, suspicious for acute infarction. Mass less favored. Recommend correlation with MRI. No significant mass effect or intracranial hemorrhage. MRI of the brain showed similarly 1. 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 The distribution involving unilateral both anterior and posterior circulation suggests either shower of emboli including through a patent left posterior commuting artery versus unilateral watershed infarcts resulting hypotension in the setting of left-sided flow limiting stenoses. communicated with Neurology further workup with CTA of the head and neck echo is ordered, will start the patient on aspirin will do the lipid profile, also pawn arrival patient had a significant elevated blood pressure, will continue permissively hypertension monitoring and keep the systolic blood pressure below 180 with hydralazine, once clinically stable will have PT OT evaluate the patient and further recommendation to follow. 01/18/2022 interval history: patient remains clinically stable has no new complaint, seen by neurologist suspect patient may had embolic event and recommended to consult Cardiology for possible KARMEN to further evaluate, on 01/16 attempt was made to do KARMEN however patient had a persisting coug and bleeding during the procedure and it was stopped, may possible will try tomorrow, patient remains clinicaly stable and has no compliants, today patient is present and gave updates and answer all his questions, patient blood sugar were checked and has elevated hemoglobin A1c is 11 patient states she has not taken her diabetic medication for 2 months, will monitor with sliding scale and start the patient on oral anti diabetic medications once clinically stable, patient seen by grizzlyman and further recommendation to follow, Today patient will have KARMEN and further recommendation to follow, will continue to monitor will have PT OT evaluate the patient. (2) Hypertensive urgency: Code(s): I16.0 - Hypertensive urgency Status: Acute Assessment and Plan: upon arrival patient's systolic blood pressure was 209/106 patient was given hydralazine and labetalol will permissively monitor patient blood pressure and keep systolic blood pressure below 180 with hydralazine 10 mg as needed (3) H/O gastric sleeve: Code(s): Z90.3 - Acquired absence of stomach [part of] Status: Acute Assessment and Plan: patient with history of morbid obesity had gastric bypass surgery (4) Hypertension: Code(s): I10 - Essential (primary) hypertension Status: Acute Assessment and Plan: patient with history of hypertension see has not taken her lisinopril for 2 months for
[2022-01-19 12:29] LABS: Glucose Point of Care 294 mg/dl (65-105)
[2022-01-19] MEDS: INSULIN ASPART (*BKC) 100 UNITS/ML SUB-Q (12:46)
[2022-01-21 04:36] LABS: Lupus dRVVT Screen 39 sec (<=45); PTT-LA Screen 31 sec (<=40)
[2022-01-24 19:12] LABS: Factor V (Leiden) Mutation NEGATIVE
== END 2022-01-19 13:05 | disposition home or self-care (01) | DRG 45 ==
LOC: ANHED 05:25 → ANHIMU 07:54 → ANH2MED 13:26
PROVIDERS: Internal Medicine; Specialist; Student in an Organized Health Care Education/Training Program; Admitting Provider Internal Medicine; Emergency Provider Emergency Medicine; PCP Family Medicine; Visit Provider Family Medicine
PROC: B24BZZ4 Ultrasonography of Heart with Aorta, Transesophageal (ICD-10-PCS; CPT 93312; principal; 2022-01-16 11:30)
DX: I63.9 Cerebral infarction, unspecified (principal); E66.01 Morbid (severe) obesity due to excess calories; I16.0 Hypertensive urgency; E11.9 Type 2 diabetes mellitus without complications; Y71.0 Diagnostic and monitoring cardiovascular devices associated with adverse incidents; T82.118A Breakdown (mechanical) of other cardiac electronic device, initial encounter; I97.418 Intraoperative hemorrhage and hematoma of a circulatory system organ or structure complicating other circulatory system procedure; G81.91 Hemiplegia, unspecified affecting right dominant side; I10 Essential (primary) hypertension; Z98.84 Bariatric surgery status; Z91.14 Patient's other noncompliance with medication regimen; Z79.84 Long term (current) use of oral hypoglycemic drugs; Z68.42 Body mass index [BMI] 45.0-49.9, adult; Z20.822 Contact with and (suspected) exposure to COVID-19
CPT/HCPCS: 36415; 70450; 70496; 70498; 70553; 71045; 80053; 80061; 81001; 81025; 81240; 81241; 82948; 83036; 83090; 83605; 83735; 84484; 85025; 85027; 85300; 85303; 85306; 85610; 85613; 85730; 86147; 87502; 93005; 93306; 93312; 93320; 93325; 93880; 96374; 96375; 97161; 97165; 99285; A9270; A9577; J0360; J1650; J1815; J2250; J2704; J3010; J7040; Q9967; U0003; U0005